=== PATIENT | female | born 1970 | race Caucasian/White ===

== ENCOUNTER 2025-04-11 09:44 | Outpatient (REF) | payer OTHER, SELFPAY ==
--- NOTE | 2025-04-11 | EMG_ITS ---
Chief complaint: Pain and weakness in right arm that seemed to have improved after a recent shoulder injection. Numbness on right hand depending on position, particularly 5th digit. Reason for referral: Evaluate for cervical radiculopathy versus Carpal Tunnel Syndrome Referred by: Amarilis WERNER Procedure done: Right upper extremity NCS/EMG Precautions and/or limitations: None The limb temperature was monitored continuously and remained between 32-36 degrees C during the performance of the NCS. Ulnar motor NCS was performed with moderate elbow flexion between 70-90 degrees, with across-elbow distance of 10 cm. Nerve Conduction Studies Anti Sensory Summary Table ?Stim Site NR Onset (ms) Norm Onset (ms) Peak (ms) Norm Peak (ms) O-P Amp (?V) Norm O-P Amp Site1 Site2 Delta-0 (ms) Dist (cm) Hugo (m/s) Norm Hugo (m/s) Right DorsCutan Anti Sensory (Dorsum 5th MC) Wrist NR Wrist Dorsum 5th MC 0.0 Right Median Anti Sensory (2nd Digit) Wrist ? 2.6 3.4 <3.6 65.9 >10 Wrist 2nd Digit 2.6 14.0 54 Right Ulnar Anti Sensory (5th Digit) Wrist ? 2.7 3.9 <3.7 22.9 >15.0 Wrist 5th Digit 2.7 14.0 52 Motor Summary Table ?Stim Site NR Onset (ms) Norm Onset (ms) O-P Amp (mV) Norm O-P Amp iAmp (mV) Amp (1st) (%) Site1 Site2 Delta-0 (ms) Dist (cm) Hugo (m/s) Norm Hugo (m/s) Right Median Motor (Abd Poll Brev) Wrist ? 3.2 <3.9 11.1 >4.5 13.5 100.0 Elbow Wrist 3.5 18.0 51 >45 Elbow ? 6.7 10.7 13.1 96.4 Right Ulnar Motor (Abd Dig Minimi) Wrist ? 3.5 <3.0 10.9 >5 12.2 100.0 B Elbow Wrist 3.1 16.5 53 >45 B Elbow ? 6.6 10.6 12.0 97.2 A Elbow B Elbow 2.2 10.0 45 >45 A Elbow ? 8.8 10.7 12.1 98.2 Right Ulnar (FDI) Motor (FDI) Wrist ? 4.1 <3.0 7.8 >5 9.0 100.0 B Elbow Wrist 3.2 15.5 48 >45 B Elbow ? 7.3 7.6 8.8 97.4 A Elbow B Elbow 1.8 10.0 56 >45 A Elbow ? 9.1 8.0 9.4 102.6 EMG ?Side Muscle Nerve Root Ins Act Fibs Psw Amp Dur Poly Recrt Int Pat Comment Right 1stDorInt Ulnar C8-T1 Nml Nml Nml Nml Nml 0 Nml Complete Right FlexCarpiUln Ulnar C8,T1 Nml Nml Nml Nml Nml 0 Nml Complete Right Biceps Musculocut C5-6 Nml Nml Nml Nml Nml 0 Nml Complete Right Triceps Radial C6-7-8 Nml Nml Nml Nml Nml 0 Nml Complete Right Deltoid Axillary C5-6 Nml Nml Nml Nml Nml 0 Nml Complete Paraspinal EMG ?Side Muscle Nerve Root Ins Act Fibs Psw Comment Right Cervical Upper Rami Nml Nml Nml Right Cervical Mid Rami Nml Nml Nml Right Cervical Lower Rami Nml Nml Nml FINDINGS: Right ulnar motor nerve, whether recording at ADM or FDI, showed prolonged distal latency, normal amplitude and normal conduction velocity. Right ulnar sensory nerve showed prolonged peak latency. Right DUCS showed absent response. All other nerves tested were within normal. Concentric needle EMG was performed in selected muscles of the right upper extremity and cervical paraspinals. Study did not reveal signs of electric abnormalities as shown in the table above. IMPRESSION: 1. This is an abnormal study. 2. 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 3. There is no electrodiagnostic evidence for median neuropathy, brachial plexopathy, or cervical radiculopathy. Thank you for your kind referral. Gege Rousseau MD, DAHLIA Board Certified, [place] [employer] (ABPMR) Board Certified, [place] [employer] Electro[employer] (ABEM) [place] [id number] [facility]
--- OUTSIDE RECORDS SUMMARY | 2025-04-11 18:02 | XMS_ITS | Data Portability ---
Author Organization [facility], Main Office Address [address] [facility] [address] [place] [phone] Care Team Providers Care Auditor/Quality Name Role Phone ROMEO PANIAGUA Primary Care Provider LAVELLE LUCIO Board Runner Assessment No assessment recorded. Plan of Treatment Reminders Order Date Submit Date Provider Last Modified By Organization Details Last Modified Time Details Appointments None recorded. Lab CBC w/ auto diff 2015 016 abolcun [facility], [address] , [address], [address], 7 16:12:17 lipid panel, serum 2015 016 DBA_PATCH_2 [id number] [facility], [address] [place] [address], [address], [address], 6 04:31:43 CMP, serum or plasma 2015 016 DBA_PATCH_2 [id number] [facility], [address] [place] [address], [address], [address], 6 04:31:43 TSH, serum or plasma 2015 016 DBA_PATCH_2 [id number] [facility], [address] , [address], [address], 6 04:31:32 Referral gastroent erologist referral - for eval of pt with persisten t GERD symptoms PPI dependent and dysphagia 2015 016 DBA_PATCH_2 [id number] Anila Collier MD, [address] [facility] [address], [place], [address], 6 04:32:05 dermatolo gist referral 2015 016 abolcun Not available 7 14:28:16 nutrition ist/dieti ayad referral 2015 016 DBA_PATCH_2 [id number] Not available 6 04:31:46 Procedures None recorded. Surgeries None recorded. Imaging XR, hip, unilatera l, 2 or 3 view 2015 016 DBA_PATCH_2 [id number] Not available 6 04:32:05 Medication Orders omeprazol e 20 mg tablet,de layed release 2015 016 DBA_PATCH_2 [id number] [id number], [address] [place], [address], 6 04:32:02 bupropion HCl SR 150 mg tablet,12 hr sustained -release 2015 016 peter [id number], [address] [place], [address], 7 11:06:38 ranitidin e 150 mg tablet 2015 016 DBA_PATCH_2 [id number] [facility], [address] [place], [address], 6 04:31:35 Patient Targets Encounter Date Encounter Id Patient Goals Patient Target Last Modified By Organization Details Last Modified Time 01/24/2016 [id number] snf goal of Excess Body Weight Loss % 5 Not available Not available Not available 01/24/2016 [id number] Pt advised and agrees to work on self-monitoring behaviors; begin an appropriate diet for weight loss (such as a low carbohydrate diet), to do moderate exercise (such as walking) for approximately 150 minutes per week; and to identify desirable and timely rewards that will reinforce achievement of specific weight loss goals. peter Not available 01/24/2016 09:19:17 Patient Instructions Encounter Date Encounter Id Patient Instructions Last Modified By Organization Details Last Modified Time 01/24/2016 [id number] deciding about u sing medicines to quit smoking Not available 01/24/2016 09:38:04 Quitting Tobacco : Care Instructions Not available 01/24/2016 09:38:04 gastroesophageal reflux disease (GERD): care instructions Not available 01/24/2016 09:38:04 Starting a Weight-Loss Plan: Care Instructions DBA_PATCH_[email or web address] [id number] Not available 05/09/2016 04:31:46 Nutrition Referr al and Weight Management Follow-up Information DBA_PATCH_20 [id number] Not available 05/09/2016 04:31:46 03/06/2016 [id number] Quitting Tobacco : Care Instructions DBA_PATCH_20 [id number] Not available 05/09/2016 04:32:05 Learning About Benefits of Quitting Smoking Not available 05/09/2016 04:32:05 hip pain: care instructions [email or web address] Not available 03/06/2016 10:41:35 sacroiliac pain: exercises DBA_PATCH_20 [id number] Not available 05/09/2016 04:32:12 gastroesophageal reflux disease (GERD): care instructions [email or web address] Not available 03/06/2016 10:41:35 Reason for Referral Media Librarian/dietitian Refer ral for Body mass index 30+ - obesity Referring Physician: Romeo Paniagua [facility], Encounter Date: 01/24/2016 Electrical Prospecting Engineer Referral for M elanocytic nevus of skin for eval of suspicous back nevus Referring Physician: [facility], Encounter Date: 01/24/2016 for eval of pt with persiste nt GERD symptoms PPI dependent and dysphagia Referring Physician: Romeo Paniagua [facility], Encounter Date: 03/06/2016 Results Created Date Observation Date Name Description Value Unit Range Abnormal Flag Note LastModifiedBy Organization Detail LastModifiedTime 03/04/20 16 03/04/2016 CBC comments [facility] [address] [address] [phone] Not Available [facility] [address] [place], [address], 03/04/2016 17:05:42 03/04/20 16 03/04/2016 CBC WBC 8.8 x10-3 /uL 4.8-10 .8 Not Available [facility] [address] [place], [address], 03/04/2016 17:05:42 03/04/20 16 03/04/2016 CBC RBC 4.3 x10-6 /uL 3.8-4. 8 Not Available [facility] [address] [place], [address], 03/04/2016 17:05:42 03/04/20 16 03/04/2016 CBC hemoglobin 13.2 g/dL 11.5-1 6.0 Not Available [facility] [address] [place] [address], [address], 03/04/2016 17:05:42 03/04/20 16 03/04/2016 CBC hematocrit 38.1 % 35-47 Not Avail able [facility] [address] [place] [address], [address], 03/04/2016 17:05:42 03/04/20 16 03/04/2016 CBC MCV 88.0 fL 79-98 Not Available [facility] [address] [place] [address], [address], 03/04/2016 17:05:42 03/04/20 16 03/04/2016 CBC MCH 30.5 pg 27-32 Not Available [facility] [address] [place] [address], [address], 03/04/2016 17:05:42 03/04/20 16 03/04/2016 CBC MCHC 34.6 g/dL 32-37 Not Available [facility] [address] [place] [address], [address], 03/04/2016 17:05:42 03/04/20 16 03/04/2016 CBC RDW 12.3 % 11-15 Not Available [facility] [address] [place] [address], [address], 03/04/2016 17:05:42 03/04/20 16 03/04/2016 CBC plt count 376 x10-3 /uL 130-40 0 Not Available [facility] [address] [place], [address], 03/04/2016 17:05:42 03/04/20 16 03/04/2016 CBC mean platelet volume 9.4 fL 7-11 Not Available [facility] [address] [place], [address], 03/04/2016 17:05:42 03/04/20 16 03/04/2016 CBC NRBC % auto diff 0.0 % <1 Not Available [facility] [address] [place] [address], [address], 03/04/2016 17:05:42 03/04/20 16 03/04/2016 CBC NRBC # auto diff 0.00 x10-3 /uL <0.1 Not Available [facility] [address] [place], [address], 03/04/2016 17:05:42 03/04/20 16 03/04/2016 CMP, serum or plasm a comments [facility] [address] [facility] [place] [address] [phone] Not Available [facility] [address] [place], [address], 03/04/2016 17:23:31 03/04/20 16 03/04/2016 CMP, serum or plasm a glucose 88 mg/dL 70-100 Refer ence range appli cable to fasti ng speci mens only Not Available [facility] [address] [place], [address], 03/04/2016 17:23:31 03/04/20 16 03/04/2016 CMP, serum or plasm a BUN 10 mg/dL 5-25 Not Available [facility] [address] [place], [address], 03/04/2016 17:23:31 03/04/20 16 03/04/2016 CMP, serum or plasm a creat 0.79 mg/dL 0.5-1. 1 Not Available [facility] [address] [place], [address], 03/04/2016 17:23:31 03/04/20 16 03/04/2016 CMP, serum or plasm a glomerular filtration rate > 60 If patie nt is Afric an-Am shahida n, multi ply resul t by 1.21 Chron ic Kidne y Disea se: < 60 ml/mi n/1.7 3 squar e meter s Kidne y Failu re: < 15 ml/mi n/1.7 3 squar e meter s Not Available [facility] [address] [place], [address], 03/04/2016 17:23:31 03/04/20 16 03/04/2016 CMP, serum or plasm a sodium 138 mmol/ L 133-14 5 Not Available [facility] [address] [place], [address], 03/04/2016 17:23:31 03/04/20 16 03/04/2016 CMP, serum or plasm a potassium 4.0 mmol/ L 3.5-5. 5 Not Available [facility] [address] [place], [address], 03/04/2016 17:23:31 03/04/20 16 03/04/2016 CMP, serum or plasm a chloride 106 mmol/ L 96-110 Not Available [facility] [address] [place], [address], 03/04/2016 17:23:31 03/04/20 16 03/04/2016 CMP, serum or plasm a CO2 24 mmol/ L 21-32 Not Available [facility] [address] [place], [address], 03/04/2016 17:23:31 03/04/20 16 03/04/2016 CMP, serum or plasm a anion gap 8 3-11 Not Available [facility] [address] [place], [address], 03/04/2016 17:23:31 03/04/20 16 03/04/2016 CMP, serum or plasm a calcium 8.6 mg/dL 8.5-10 .5 Not Available [facility] [address] [place], [address], 03/04/2016 17:23:31 03/04/20 16 03/04/2016 CMP, serum or plasm a total protein 6.7 g/dL 6.0-8. 0 Not Available [facility] [address] [place], [address], 03/04/2016 17:23:31 03/04/20 16 03/04/2016 CMP, serum or plasm a albumin 3.9 g/dL 3.2-5. 0 Not Available [facility] [address] [place] [address], [address], 03/04/2016 17:23:31 03/04/20 16 03/04/2016 CMP, serum or plasm a bili,total 0.3 mg/dL 0.0-1. 4 Not Available [facility] [address] [place] [address], [address], 03/04/2016 17:23:31 03/04/20 16 03/04/2016 CMP, serum or plasm a SGOT 10 U/L 10-42 Not Available [facility] [address] [place] [address], [address], 03/04/2016 17:23:31 03/04/20 16 03/04/2016 CMP, serum or plasm a SGPT 22 U/L 10-60 Not Available [facility] [address] [place] [address], [address], 03/04/2016 17:23:31 03/04/20 16 03/04/2016 CMP, serum or plasm a alk phos 62 U/L 42-121 Not Available [facility] [address] [place] [address], [address], 03/04/2016 17:23:31 03/04/20 16 03/04/2016 lipid panel , serum comments [facility] [address] [facility] [place] [address] [phone] Not Available [facility] [address] [place] [address], [address], 03/04/2016 17:23:34 03/04/20 16 03/04/2016 lipid panel , serum cholesterol 228 mg/dL 0-200 high Not Available [facility] [address] [place], [address], 03/04/2016 17:23:34 03/04/20 16 03/04/2016 lipid panel , serum triglyceride s 165 mg/dL 0-150 high Not Available [facility] [address] [place], [address], 03/04/2016 17:23:34 03/04/20 16 03/04/2016 lipid panel , serum HDL cholesterol 46 mg/dL >40 Not Available [facility] [address] [place], [address], 03/04/2016 17:23:34 03/04/20 16 03/04/2016 lipid panel , serum LDL calculated 149 mg/dL 0-100 high Not Available [facility] [address] [place] [address], [address], 03/04/2016 17:23:34 03/04/20 16 03/04/2016 lipid panel , serum TC-HDLC ratio 5.0 mg/dL 0-4.4 high Not Available [facility] [address] [place] [address], [address], 03/04/2016 17:23:34 03/04/20 16 03/04/2016 TSH, serum or plasm a comments [facility] [address] [facility] [place] [address] [phone] Not Available [facility] [address] [place], [address], 03/04/2016 17:31:14 03/04/20 16 03/04/2016 TSH, serum or plasm a TSH 1.71 uIU/m L 0.40-4 .00 Not Available [facility] [address] [place] [address], [address], 03/04/2016 17:31:14 03/08/20 16 03/08/2016 XR, hip, unila teral , 2 or 3 view No observ ation record ed. [facility] [address] [facility], [place], [address], 03/13/2016 07:40:07 03/10/20 16 04/29/2015 MAMMO , scree efrain, bilat eral No observ ation record ed. [email or web address] Not Available 03/11 06:17:11 Result Notes None recorded. Problems Name Problem SNOMED Code Status Onset Date Resolution Date Notes Provider Name and Address Organization Details Recorded Time Inflammator y bowel disease 58922208 Completed 201501/24/2016 Romeo Paniagua MD [address] [address], [facility] [place], [address], [facility] 6 09:15:30 Gastroesoph ageal reflux disease 658429648 Active 2015 Romeo Paniagua MD [address] [place], [address], [facility] 6 10:36:41 Tobacco dependence syndrome 32109108 Active 2016 Romeo Paniagua MD [address] [place], [address], [facility] 7 11:08:14 Problem Notes None recorded. Procedures Surgical History Date Name Laterality Status Provider Name and Address Organization Details Recorded Time 5 Date of Last Pap Smear completed Romeo Paniagua MD [address], [phone], [facility] 02/06/2016 23:06:08 9 delivery completed Jay Summers [facility] 01/24/2016 08:55:30 9 Tubal Ligation completed Jay Summers [facility] 01/24/2016 08:56:17 4 delivery completed Jay Summers [facility] 01/24/2016 08:55:20 Mammogram screening completed Chanelle Del Valle MA [facility] 03/06/2016 10:01:50 Imaging Results None recorded. Procedure Notes None recorded. Medical Equipment None Reported. Allergies No known drug allergies Medications Name Sig Start Date Stop Date Status Note LastModified by Organization Details LastModified Time omeprazole 20 mg cpdr 01/23 completed Not Available Not Available Not Available bupropion HCl SR 150 mg tablet,12 hr sustained-re lease TAKE 1 TABLET TWICE A DAY BY ORAL ROUTE 12/26 completed Not Available Not Available Not Available azithromycin 250 mg tablet active Not Available Not Available Not Available ranitidine 150 mg tablet Take 1 tablet twice a day by oral route as needed. active Not Available Not Available No t Available omeprazole 20 mg capsule,vanessa yed release TAKE 1 CAPSULE EVERY DAY BY ORAL ROUTE active Not Available Not Available No t Available bupropion HCl XL 300 mg 24 hr tablet, extended release Take 1 tablet every day by oral route for 30 days. active Not Available Not Available No t Available omeprazole 20 mg tablet,delay ed release Take 1 tablet every day by oral route for 30 days. 2015 active Not Available Not Available Not Avai lable Vitals Date Recorded Body weight Body height Body mass index (BMI) Body temperature Oxygen saturation Oxygen saturation in Arterial blood by Pulse oximetry Heart rate Systolic And Diastolic Provider Name and Address Organization Details Last Updated DateTime 6 [address].9 2 g 155.58 cm 32.5 kg/m2 98 [degF] 96 % 96 % 73 /min 110/76 mm[Hg] Jay Summers [facility] 6 08:51:46 Date Recorded Body height Body weight Body mass index (BMI) Heart rate Oxygen saturation Oxygen saturation in Arterial blood by Pulse oximetry Body temperature Systolic And Diastolic Provider Name and Address Organization Details Last Updated DateTime 6 155.58 cm 73133.8 9 g 32.2 kg/m2 84 /min 97 % 97 % 98.7 [degF] 126/80 mm[Hg] Chanelle Del Valle MA [facility] 6 10:04:30 Social History Question Answer Notes LastModified by Organizat ion Details LastModified Time Tobacco Smoking Status Current Every Day Smoker Jay Summers [facility] 01/24/2016 08:54:28 Do You Have An Advance Directive? Yes Given On 01/24/2016 Information not available 01/24/2016 Is Blood Transfusion Acceptable In An Emergency? Yes Information not available 01/24/2016 What Is Your Level Of Caffeine Consumption? Heavy Coffee Information not available 01/24/2016 How Much Tobacco Do You Chew? None Information not available 01/24/2016 What Type Of Diet Are You Following? REGULAR Information not available 01/24/2016 Live Alone Or With Others? With Others 2 Daughters Information not available 01/24/2016 Do You Take Precautions To Prevent Distracted Driving? Yes Information not available 01/24/2016 How Often Do You Need To Have Someone Help You When You Read Instructions, Pamphlets, Or Other Written Material From Your Doctor Or Pharmacy? Never Information not available 01/24/2016 Have You Served In The ? No abolcun Information not available 03/06/2016 How Many Children Do You Have? 2 Information not available 01/24/2016 Do You Use Protection During Sex? No Information not available 01/24/2016 Seat Belts Used Routinely Yes Information not available 01/24/2016 Are You Sexually Active? Yes Information not available 01/24/2016 Smoke Alarm In Home Yes Information not available 01/24/2016 At What Age Did You Start Smoking Tobacco? 26 Information not available 01/24/2016 Are You Passively Exposed To Smoke? Yes Information not available 01/24/2016 How Much Tobacco Do You Smoke? 1 PPD Information not available 01/24/2016 Do You Use Sunscreen Routinely? Yes Information not available 01/24/2016 Sex: Unknown Functional Status Question Answer Note LastModified by Organizat ion Details LastModified Time What is your level of alcohol consumption? Moderate Information not available 01/24/2016 Are you currently employed? Yes Information not available 01/24/2016 Are you able to care for yourself independently? 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 Occasional Information not available 01/24/2016 Mental Status None recorded. Family History Relationship Description Onset Age of this Age Resolved Age Notes LastModified by Organization Details LastModified Time Mother Osteoporosis [email or web address] Not a vailable 01/24/2016 08:53:15 Mother Ulcerative colitis [email or web address] Not available 01/23 09:10:01 Father Family history unknown [email or web address] Not available 01/23 09:09:15 Brother Hypertensive disorder [email or web address] Not available 01/23 09:09:24 Medical History No medical history recorded. Gynecological History Statement/Question Response Flow Moderate Duration of Flow (days) 6 Age at Menarche 13 Current Control Method Tubal Ligat ion Age at First Child 33 Frequency of Cycle (Q days) 28 Sexually Active? Y Menses Monthly Y Date of Last Pap Smear 04/29/2015 Sexual Problems? N LMP Approximate Desired Control Method N/A Obstetrics History GPAL:G 2 P 2 0 0 0 Type Value Full Term 2 Total 2 Immunizations Vaccine Type Date Status Note Provider Nam e and Address Organization Details Recorded Time Influenza, split virus, quadrivalent, preservative 6 completed MURIEL Schultz [facility] 03/06/2016 10:00:53 Tdap 6 completed MURIEL Schultz [facility] 03/06/2016 10:01:11 Past Encounters Encounter ID Performer Location Encounter Start Date Encounter Closed Date Diagnosis/Indication Diagnosis SNOMED-CT Code Diagnosis ICD10 Code Diagnosis IMO Codes Diagnosis Note [id number] Romeo Paniagua MD Main Office [address] [facility] [place] [phone] 01/24/2016 08:34:06 01/24/2016 10:03:12 Adult health examination 532439991 Z00.00 Per pt immunizati on status, PAP and mammograph y are utd, will track down records and otherwise screen based on risk factors. Regular dental and ophtho care advised as well as seat belt and sunscreen use. Distracted driving discussed. Advance directives in place. Body mass index 30+ - obesity 219743646 Z68.39 Tobacco de pendence syndrome 36390361 F17.290 Common medication side effects discussed. Will assess response/t olerance in 6 weeks. Melanocyti c nevus of skin 290519389 D22.9 Gastroesop hageal reflux disease 251951476 K21.9 [id number] Romeo Paniagua MD Main Office [address] [facility] [address] [place] [address] 03/06/2016 09:50:18 03/06/2016 10:43:28 Tobacco dependence syndrome 91831734 F17.290 Still smoking but has weaned down use considerab ly. Tolerating buproprion well. Continue current regimen. Hypercholesterolemia 136 [address]1536 E78.01 Based on current CV risk (<7.5%) meds are not warranted. TLC discussed/ advised. Pain of hip region 13176 002 M25.559 Suspect referred SIJ pain. Will image and refer to PMR depending on results and symptom progressio n. Gastroesop hageal reflux disease 274712972 K21.9 Persistent symptoms despite PPI therpay. Will ask GI to consider EGD. Health Concerns Section Related Observation LastModified by Organization Detai ls LastModified Time None Recorded Concern Status LastModified by Organization Details LastModified Time None Recorded Advance Directives Directive Y: given on 01/24/2016 Payers Insurance Date Sequence Insurance Name Policy Number Policy Williamson Covered Member ID Williamson Member ID Guarantor Name 10/23/2016 1 [facility] - MED RATE [id number] Geo Ayers [id number] Manny Ayers 01/23/2016 1 [facility] (O) [id number] Geo Ayers [id number] Manny Ayers Notes Date Note Type Note Provider Name and Address Organization Details Recorded Time 6 text/html Generic HPI TemplateReported by PatientNew pt from Dr Hrut, feels well. Seeing ophto but overdue for routine dental exam. Romeo Paniagua MD [address] [facility] [address], [place], [address], [facility], [place] [facility] 01/24/2016 09:41:34 6 text/html Musculoskeletal PainReported by PatientHPIFor quality, patient reportssharpanddull. For severity, patient reportsinterference with sleepbut reportspain level with meds 3/10andpain level without meds 7/10. For location, patient reportsbilateral hip. For duration, patient reportspresent for 1-6 months. For timing, patient reportsintermittent. HyperlipidemiaReported by PatientHPIFor type of hyperlipidemia, patient reportscombined. For duration, patient reportsnew onset. For compliance, patient reportsdoes not exercisebut reportscompliant with diet. For current therapy, patient reportslast cholesterol level: (228),last ldl level: (149),last triglyceride level: (165), andlast hdl level: (46). For complications, patient reportsno coronary artery disease,no peripheral artery disease, andno cardiovascular disease. GERD RefluxReported by PatientHPIFor symptoms, patient reportspain swallowing (odynophagia). For quality, patient reportsburning. For severity, patient reportsworsening. For context, patient reportssmoker ____ppd. For duration, patient reportspresent 1-4 years. For onset/timing, patient reportsgradual onset. For alleviating factors, patient reportsprotein pump inhibitors.Having break through symptoms despite daily PPI therapy. [facility] Smoking CessationReported by PatientHPIFor duration, patient [id number] years. For timing, patient reportsdaily. For quality, patient reports8 cigarettes/day. For context, patient reportsduring stress. For associated symptoms, patient reportsno weight loss. For treatments tried, patient reportsnicotine gum. For caution to taking nrt, patient reportsnone. Rachel del toro [facility] 03/12/2016 11:06:17 OBGyn Episode No OBEpisode recorded.
--- OUTSIDE RECORDS SUMMARY | 2025-04-11 18:02 | XMS_ITS | Clinical Summary ---
Author Organization [facility] Address [address] [place] [address] Phone Care Team Providers Care Calibrator Barometers Name Role Phone Claudia Mckenzie MD Primary Care Provider [phone] Allergies Active Allergy Reactions Criticality Noted Date Comments Naproxen GI intolerance 12/30/2017 Medications atorvastatin (LIPITOR) 20 mg tablet Take 1 tablet (20 mg total) by mouth 1 (one) time each day. 90 tablet 1 04/05/20 25 Active semaglutide (Wegovy) 2.4 mg/0.75 mL injection penIndications :Obesity (BMI 30.0-34.9) Inject 2.4 mg under the skin every 7 (seven) days. 9 mL 1 04/05/20 25 026 Active atorvastatin (LIPITOR) 20 mg tablet TAKE 1 TABLET BY MOUTH EVERY DAY 90 tablet 1 09/06/19 25 025 Discontin ued(Reord er) semaglutide (Wegovy) 2.4 mg/0.75 mL injection penIndications :Obesity (BMI 30.0-34.9) INJECT 2.4 MG SUBCUTANEOUSLY ONE TIME PER WEEK 3 mL 3 01/10/20 25 025 Discontin ued(Reord er) Active Problems Problem Noted Date Diagnosed Date Post herpetic neuralgia 04/05/2025 Overweight 01/02/2025 Obesity without serious comorbidity 06/22/2024 Thrombocytosis 07/08/2023 Hyperlipidemia 01/20/2017 Overview (06/05/2024): 2.4% GERD (gastroesophageal reflux disease) 7 Smoker 12/18/2016 Ulcerative colitis ([facility] V24, [facility] V28) Overview (06/05/2024): In remission for a long time. Encounters Date Type Department Care Team Description 04/05/2025 2:45 PM EST Office Visit [facility] [address] [place] [phone] Niecy Mcleod PA Ulcerative colitis with complication, unspecified location ([facility] V24, [facility] V28) (Primary Dx); Obesity (BMI 30.0-34.9); Hyperlipidemia, unspecified hyperlipidemia type; Thrombocytosis; Overweight; Smoker; Post herpetic neuralgia; Acute bursitis of right shoulder 03/13/2025 1:00 PM EDT Office Visit Orthopedic [facility] [address] [facility] [address] [place] [phone] Amarilis Herron PA Paresthesias in right hand (Primary Dx); Acute pain of right shoulder; Cervical radiculopathy 02/15/2025 Telephone Orthopedic [facility] [address] [facility] [address] [place] [phone] Amarilis Herron PA 01/30/2025 1:30 PM EDT Consult Orthopedic [facility] [address] [facility] [address] [place] [phone] Amarilis Herron PA Calcific tendinitis of right shoulder (Primary Dx); Acute pain of right shoulder; Paresthesias in right hand; Cervical radiculopathy 01/30/2025 Telephone Orthopedic [facility] [address] [facility] [address] [place] [phone] Galdino Burrell MA 01/09/2025 3:30 PM EDT Office Visit [facility] Hematology Oncology [address] [place] [phone] Harpreet Castro MD Thrombocytosis (Primary Dx) from Last 3 Months Immunizations Immunization Administration Dates Next Due Influenza Quadrivalent, 0.5m l, preservative free (Fluarix; FluLaval; Fluzone) ages 6mo and older (Afluria) 3yo and older 04/21/2021 Influenza Quadrivalent, with preservative (Fluzone; Afluria) 6mo and older 02/26/2016 Pfizer SARS-CoV-2 COVID-19, mRNA, LNP-S, preservative free 07/22/2020,07/01/2020 Tdap Tetanus diptheria acell ular pertussis (Boostrix; Adacel) 7yo and older 08/11/2015 Surgical History Surgery Date Site/Laterality Comments SECTION PROCEDURE: HISTORICAL DELIVERY; COMMENT: times 2 TUBAL LIGATION PROCEDURE: HISTORICAL TUBAL LIGATION CHOLECYSTECTOMY PROCEDURE: IN LAPAROSCOPY SURG CHOLECYSTECTOMY Medical History Medical History Date Comments GERD (gastroesophageal reflux disease) 7 DX:GERD (gastroesophageal reflux disease) Smoker 12/18/2016 DX:Smoker History of ulcerative colitis 12/18/2016 DX :History of ulcerative colitis; COMMENT: In remission for a long time. 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 Marj Corona Pap smear for cervical cancer screening 06/2023 DX:Pap smear for cervical cancer screening; COMMENT: Neg Cytology, Neg HPV Family History Medical History Relation Name Comments Hyperlipidemia Brother Hypertension Brother Hypertension Father Osteoporosis Mother ulcerative coli tis Breast cancer Other mom side Hypertension Sister 1/2 sister Kidney disease Sister 1/2 sister Relation Name Status Comments Brother Alive Father Mother Other mom side Alive Sister 1/2 sister Alive Social History Tobacco Use Types Packs/Day Years Used Date Smoking Tobacco: Every Day Cigarettes Smokeless Tobacco: Never Tobacco Cessation:Ready to Q uit: Not Asked; Counseling Given: Not Answered Alcohol Use Standard Drinks/Week Comments Yes 0 (1 standard drink = 0.6 oz pur e alcohol) OCCASIONAL Comments No Sex and Gender Information Value Date Recorded Sex Assigned at Not on file Legal Sex Female 10:44 PM EST Gender Identity Not on file Sexual Orientation Not on file Occupation Industry Job Start Date Job End Date [employer] TRAN Not on file Not on file Not on file Obstetrics History Para Term AB IAB SAB Ectopic Multiple Livin g Live Births 2 2 2 2 Date Outcome GA Total Labor Labor/2nd/3rd Weight Sex Type Anes PTL Pricilla A1 A5 Name Clin 2003 Para F CS-Un spec Living 2008 Para F CS-Un spec Living Last Filed Vital Signs Vital Sign Reading Time Taken Comments Blood Pressure 124/80 04/05/2025 2:49 PM EST Pulse 89 04/05/2025 2:49 PM EST Temperature 36.1 C (97 F) 01/09/2025 3:39 PM EDT Respiratory Rate - - Oxygen Saturation 99% 04/05/2025 2:49 PM EST Inhaled Oxygen Concentration - - Weight 68.7 kg (151 lb 6.4 oz) 04/05/2025 2:49 P M EST Height 157.5 cm (5' 2 ) 01/02/2025 2:55 PM EDT Body Mass Index 27.69 01/02/2025 2:55 PM EDT Plan of Treatment Upcoming Encounters Date Type Department Care Team (Late st Contact Info) Description 10/03/2025 9:30 AM EDT Office Visit Adult Medicine [facility] [address] [place] [address] Niecy Mcleod, DEBBI [address] [place] [address] Health Maintenance Due Date Last Done Comments Hepatitis B Vaccines (1 of 3 - 19+ 3-dose series) 11/15/1990 Pneumococcal Vaccine: 50+ Years (1 of 2 - PCV) 11/15/1990 Zoster Vaccines (1 of 2) 11/15/1990 COVID-19 Vaccine (3 - Pfizer risk series) 08/19/2020 07/22/2020, 07/01/2020 HIV Screening 04/26/2022 Hepatitis C Screening 04/26/2022 Social Influencers of Health Screening 04/26/2022 Influenza Vaccine (#1) 2025 , 02/26/2016 DTaP,Tdap,and Td Vaccines (2 - Td or Tdap) 08/10/2025 08/11/2015 Breast Cancer Screening 01/19/2027 01/19/2025 Cervical Cancer Screening: P ap Smear 06/08/2027 06/08/2024 Cholesterol Screening (Lipid Panel) 06/22/2029 06/22/2024, 12/20/2023 Colorectal Cancer Screening: Colonoscopy 09/28/2033 09/29/2023 RSV Immunization Adult Patients (1 - 1-dose 75+ series) 11/15/2046 Depression Screening Completed 04/05/2025 HIB Vaccines Aged Out No longer eligi ble based on patient's age to complete this topic HPV Vaccines Aged Out No longer eligi ble based on patient's age to complete this topic Hepatitis A Vaccines Aged Out No long er eligible based on patient's age to complete this topic IPV Vaccines Aged Out No longer eligi ble based on patient's age to complete this topic MMR Vaccines Aged Out No longer eligi ble based on patient's age to complete this topic Meningococcal ACWY Vaccine Aged Out N o longer eligible based on patient's age to complete this topic Meningococcal B Vaccine Aged Out No l onger eligible based on patient's age to complete this topic RSV Immunization Patients Under 20 months Aged Out No longer eligible b ased on patient's age to complete this topic Varicella Vaccines Aged Out No longer eligible based on patient's age to complete this topic Procedures Procedure Name Priority Date/Time Associated Diagnosis Comments IN ARTHROCENTESIS/ASPI RATION/INJECTION MAJOR JOINT/BURSA W/O U/S GUIDANCE Routine 01/30/2025 1:30 PM EDT Calcific tendinitis of right shoulder MG MAMMO DIGITAL SCREENING BILAT Routine 01/19/2025 Encounter for well woman exam with routine gynecological exam Screening mammogram for breast cancer LIPID PANEL WITH REFLEX TO DIRECT LDL Routine 06/22/2024 2:04 PM EST Routine general medical examination at a health care facility Hyperlipidemia, unspecified hyperlipidemia type PAP SMEAR Routine 06/08/2024 10:26 AM EST EXTERNAL COLONOSCOPY REPORT Routine 09/29/2023 9:21 AM EDT from Last 3 Months or Most Recently Relevant to Health Maintenance Results * IN ARTHROCENTESIS/ASPIRATION/INJECTION MAJOR JOINT/BURSA W/O U/S GUIDANCE (01/30/2025 1:30 PM EDT) Narrative Amarilis Herron PA - 01/30/2025 1:30 PM EDT DEBBI Jacobson 01/30/2025 2:07 PM L Inj/Asp: R subacromial bursa Indications: pain Details: 25 G needle, lateral approach Medications: 3 mL lidocaine 1 %; 40 mg triamcinolone acetonide 40 mg/mL Informed Consent: Laterality: Right Relevant images/test results available and reviewed: yes Health status cleared: Yes Procedure/treatment, purpose, treatment alternatives, risks/potential complications and benefits explained: yes Risk/complications/benefits details: Risks of infection, thinning of the skin and temporary skin discoloration discussed. Discussed risks of temporary increased pain after injection and swelling and mild redness at injection site for couple days. Explained occasionally cortisone injection can cause facial flushing temporarily. Benefits pain management. For postop injection pain ice, Tylenol and/or NSAIDs if patient can take Patient questions answered: yes Patient agrees, verbalizes understanding, and wants to proceed: yes Consent given by: Patient Informed consent discussion completed by Physician/KRISTAL with patient: Verbal Pre-procedure timeout performed: yes Amarilis WERNER IN CLINIC/BEDSIDE ORDERABLES Final Result * MG Mammo Digital Screening bilat (01/19/2025) Anatomical Region Laterality Modality Breast Bilateral Mammography Lupe Saldana [facility] BI PROCEDURES Final Resul t * Lipid panel with reflex to direct LDL (06/22/2024 2:04 PM EST) Cholesterol 147 0 - 200 mg/dL LAB CHEMISTRY METHOD 06/22/2024 6:16 PM [facility] Triglycerides 118 0 - 150 mg/dL LAB CHEMISTRY METHOD 06/22/2024 6:16 PM EST [facility] HDL 48 >=40 mg/dL LAB CHEMISTRY METHOD 06/22/2024 6:16 PM [facility] LDL Calculated 75 0 - 100 mg/dL LAB CHEMISTRY METHOD 06/22/2024 6:16 PM [facility] VLDL Cholesterol Juan 23.6 mg/dL LAB CHEMISTRY METHOD 06/22/2024 6:16 PM EST [facility] Non HDL Chol. (LDL+VLDL) 99 <145 mg/dL LAB CHEMISTRY METHOD 06/22/2024 6:16 PM EST [facility] Chol/HDL Ratio 3.1 0.0 - 4.4 LAB CHEMISTRY METHOD 06/22/2024 6:16 PM EST [facility] Blood Venous blood specimen / Unknown Venipuncture / Unknown 06/22/2024 2:04 PM EST 06/22/2024 2:04 PM EST us Niecy WERNER LAB BLOOD ORDERABLES Final Result [facility] [address] [place] [address], * Pap smear (06/08/2024 10:26 AM EST) Brushing/Spatula Cervix uteri structure / Unknown Historical Provider LAB CYTOLOGY ORDERABLES F inal Result * External Colonoscopy Report (09/29/2023 9:21 AM EDT) Anatomical Region Laterality Modality Endoscopy Historical Provider GI~PROCEDURE ORDERABLES F inal Result from Last 3 Months or Most Recently Relevant to Health Maintenance [place] [phone] Care Teams Calibrator Barometers Relationship Specialty Start Date End Date Claudia Mckenzie MD [address] [facility] [address] [place] [address] PCP - General Internal Medicine 06/08/24
== END 2025-04-11 09:45 | disposition home or self-care (01) ==
LOC: HO.NEURO 09:44
PROVIDERS: PCP Physician Assistant Medical; Visit Provider Physician Assistant
DX: R20.2 Paresthesia of skin (principal); R20.0 Anesthesia of skin; M54.12 Radiculopathy, cervical region; M79.641 Pain in right hand; R53.1 Weakness
CPT/HCPCS: 95886; 95909

== ENCOUNTER → 2025-04-11 10:03 | Outpatient (BNV) | payer OTHER, SELFPAY | PROVIDERS: PCP Physician Assistant Medical; Visit Provider Physical Medicine & Rehabilitation | DX: G56.21 Lesion of ulnar nerve, right upper limb (principal) | CPT/HCPCS: 95886; 95909 ==